=== PATIENT | male | born 1990 | race Caucasian/White ===

== ENCOUNTER 2018-12-08 23:27 | Emergency (ER) | payer SELFPAY ==
[2018-12-08 23:45] VITALS: BP 119/83; PULSE 75; TEMP 97.7; O2SAT 99
[2018-12-09 00:23] VITALS: RESP 20
--- NOTE | 2018-12-09 01:30 | C.PDOC ---
History Of Present Illness 28 year old male presents via EMS for generalized malaise, headache, and sore throat since yesterday. Today patient felt weak and some chills prompting him to call 911. Denies fever, neck pain/stiffness, vomiting, diarrhea, dizziness, or abdominal pain. Patient states he feels better since arriving to the ER. Time Seen by Provider: 12/09/18 00:06 Chief Complaint (Nursing): Headache History Per: Patient History/Exam Limitations: no limitations Onset/Duration Of Symptoms: Other (Yesterday) Current Symptoms Are (Timing): Still Present Recent travel outside of the [place]: No Past Medical History Reviewed: Historical Data, Nursing Documentation, Vital Signs Vital Signs: Last Vital Signs Temp 97.7 F 12/08/18 23:43 Pulse 75 12/08/18 23:43 Resp 20 12/09/18 00:22 BP 119/83 12/08/18 23:43 Pulse Ox 99 12/08/18 23:43 Family History: States: Unknown Family Hx - Social History Hx Alcohol Use: No Hx Substance Use: No Review Of Systems Constitutional: Positive for: Chills, Weakness, Malaise. Negative for: Fever ENT: Positive for: Throat Pain Gastrointestinal: Negative for: Vomiting, Abdominal Pain, Diarrhea Musculoskeletal: Negative for: Neck Pain Neurological: Positive for: Headache. Negative for: Weakness, Numbness, Dizziness Physical Exam - Physical Exam Appears: Non-toxic Skin: Normal Color, Warm, Dry Head: Atraumatic, Normacephalic Eye(s): bilateral: Normal Inspection, PERRL, EOMI Ear(s): Bilateral: Normal Nose: Normal Oral Mucosa: Moist Throat: Normal, No Erythema, No Exudate Neck: Normal, No Midline Cervical Tenderness, No Paracervical Tenderness, Supple Chest: Symmetrical, No Tenderness Cardiovascular: Rhythm Regular Respiratory: Normal Breath Sounds, No Rales, No Rhonchi, No Wheezing Gastrointestinal/Abdominal: Soft, No Tenderness Back: No CVA Tenderness Neurological/Psych: Oriented x3, Normal Speech Gait: Steady ED Course And Treatment O2 Sat by Pulse Oximetry: 99 (Room air) Pulse Ox Interpretation: Normal Progress Note: Patient is resting comfortably in no acute distress, vitals are stable, will discharge home with instructions to follow up with PMD. Disposition - Disposition Disposition: HOME/ ROUTINE Disposition Time: 00:20 Condition: STABLE Instructions: Viral Upper Respiratory Infection, Adult (DC) Forms: [employer] (Bermudian) - Clinical Impression Clinical Impression: Upper respiratory infection - PA / PHARMACY CLINICAL SPECIALIST / Resident Statement MD/DO has reviewed & agrees with the documentation as recorded. - Scribe Statement The provider has reviewed the documentation as recorded by the Scribe Romario Machado All medical record entries made by the Scribe were at my direction and personally dictated by me. I have reviewed the chart and agree that the record accurately reflects my personal performance of the history, physical exam, medical decision making, and the department course for this patient. I have also personally directed, reviewed, and agree with the discharge instructions and disposition.
== END 2018-12-09 00:22 | disposition home or self-care (01) ==
LOC: C.ER 23:27
DX: J06.9 Acute upper respiratory infection, unspecified (principal)